=== PATIENT | female | born 1955 | race Caucasian/White ===

== ENCOUNTER → 2017-08-14 | Outpatient (CLI) | payer BC ==
[2013-10-18 12:24] VITALS: BP 130/72
--- NOTE | 2017-08-14 17:54 | RAD ---
HISTORY: Low back pain. 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 This will be dictated as this as being L5 in keeping with previous dictations. There is moderate facet arthropathy at L4/L5. Milder degrees are noted elsewhere. Minimal lateral s purring is noted. A grade 1 spondylolisthesis of L4 on L5 is noted, having developed since the prior examination. Mild disc space narrowing is noted at this level. There is ossification/calcification within this disc space. No pars defects are identified. Mild disc space narrowing is noted at L2/L 3 and minimal at L3/L4 minimal anterior spurring is noted. [id number] vascular calcification i s present. IMPRESSION: 1. Lumbar spondylosis as described above, slightly progressed when compared to the prior examination . 2. Interval development of 4- 5 mm of spondylolisthesis of L4 on L5. 3. No acute bony abnormalities are identified. Reported By:
== END | disposition home or self-care (01) ==
LOC: RAD 15:52
PROVIDERS: ATTEND Internal Medicine
DX: M54.5 Low back pain (principal); M47.896 Other spondylosis, lumbar region; M43.16 Spondylolisthesis, lumbar region
CPT/HCPCS: 72110